=== PATIENT | male | born 1965 | race African-American/Black ===

== ENCOUNTER 2017-08-05 20:57 | Observation (INO) | payer SELFPAY ==
--- NOTE | 2017-08-05 21:34 | RAD ---
FRONTAL VIEW CHEST 08/05/17 COMPARISON: 11/30/15 CLINICAL HISTORY: Left arm numbness and chest tightness. There is no consolidation, effusion or pneumothorax. Mild elevation of the right hemidiaphragm. The c ardiac silhouette is within normal limits in size. There is osseous degenerative change. IMPRESSION: No focal consolidation. POS: [facility]
[2017-08-05 21:38] LABS: Hemoglobin 15.7 g/dL (14.0-18.0); Mean Corpuscular HGB CONC 33.5 g/dL (32.0-36.0); Mean Corpuscular Hemoglobin 30.8 pg (27.0-31.0); Mean Corpuscular Volume 91.8 fl (80.0-94.0); Mean Platelet Volume 6.5 fL (7.4-10.4); Platelet Count 280 thou/uL (130-400); RBC Distribution Width 12.3 % (11.5-14.5); Red Blood Cell (RBC) Count 5.09 mill/uL (4.70-6.10); White Blood Cell (WBC) Count 7.4 thou/uL (4.8-10.8)
[2017-08-05 21:56] LABS: ALT (SGPT) 30 U/L (8-55); AST (SGOT) 19 U/L (5-34); Albumin 4.9 g/dL (3.5-5.0); Alkaline Phosphatase 64 U/L (40-150); Anion Gap 14 mmol/L (10-20); BUN (Urea Nitrogen) 11 mg/dL (8.4-25.7); Bilirubin, Total 1.7 mg/dL (0.2-1.2); CK (CPK) 118 U/L (30-200); Calc. Creatinine Clearance 0 mL/min (70-130); Calcium 9.5 mg/dL (7.8-10.44); Carbon Dioxide 27 mmol/L (22-29); Chloride 103 mmol/L (98-107); Estimated GFR-MDRD Greater than 90; Globulin 3.2 g/dL (2.4-3.5); Glucose 107 mg/dL (70-105); Potassium 3.8 mmol/L (3.5-5.1); Protein, Total 8.1 g/dL (6.0-8.3); Sodium 140 mmol/L (136-145)
[2017-08-05 22:00] LABS: CKMB 0.5 ng/mL (0-6.6); Troponin I Less than 0.010 ng/mL (< 0.028)
[2017-08-05 22:01] LABS: Eosinophils 9 % (0-10); Lymphocytes 43 % (21-51); MDiff Complete? YES; Monocytes 5 % (0-10); Neutrophil 38 % (42-75); Reactive Lymphocytes 5 % (0-10)
[2017-08-05] MEDS ORDERED: HumaLOG 300 UNITS/3 ML VIAL SC PRN (23:18)
[2017-08-05] MEDS ORDERED: Acetaminophen 325 MG TAB PO PRN (23:18)
[2017-08-05] MEDS ORDERED: Dextrose 50% Abboject 50 ML SYRINGE SLOW IVP PRN (23:18)
[2017-08-05] MEDS ORDERED: HYDROcodone/Acetaminophen 5/325 mg Tablet PO PRN (23:18)
[2017-08-05] MEDS ORDERED: Ondansetron ODT 4 MG TAB PO PRN (23:18)
[2017-08-05] MEDS ORDERED: Dextrose 5% in Water 1,000 ML IV PRN (23:18)
--- NOTE | 2017-08-05 23:41 | HP ---
CHIEF COMPLAINT: Chest pain. HISTORY OF PRESENT ILLNESS: The patient is a 52-year-old male who states that he has been having int ermittent chest pain for the last 4 days. Chest pain occurs at rest and not associated with any part icular activity. Patient also admits to having some left arm heaviness/weakness. Patient states mica t he has had prior symptoms; however, has never seek medical attention for this. He has had a stress test, which he states was one year ago which has not been confirmed, which he states was normal and this was for preop for possible knee surgery. The patient states that his mother did have a triple b ypass at a young age and of a stroke in her 60s. PAST MEDICAL HISTORY: Patient is significant for hypertension, hyperlipidemia, and type 2 diabetes. PAST SURGICAL HISTORY: The patient has had a prior reconstructive surgery on his urethra. SOCIAL HISTORY: Negative for alcohol use. Patient does chew tobacco. No smoking. FAMILY HISTORY: As discussed above and reviewed. MEDICATIONS: The patient is currently on metformin, metoprolol, lisinopril, Systane eyedrops, amlodi pine, and simvastatin. REVIEW OF SYSTEMS: Please see HPI. Rest of review of system is negative. LABORATORY AND X-RAY DATA: CBC: White count 7.4, H and H 15 and 46 with platelets of 280. Sodium i s 140, potassium 2.8, chloride 103, bicarbonate 27, BUN 11, creatinine 1.0. His troponin was less th an 0.010. CK-MB is 0.5. BNP was 13.4. Patient's chest x-ray was unremarkable without any abnormali ties. PHYSICAL EXAMINATION: VITAL SIGNS: Blood pressure 145/93, pulse 85. Patient satting 97% on room air, respirations 18. GENERAL: Patient is awake, alert, oriented x3, in no acute distress. HEENT: Pupils equal, round, react to light and accommodation. Extraocular muscles are intact. TMs are clear. No erythema in throat. NECK: No JVD, no lymphadenopathy. HEART: Regular rate and rhythm. LUNGS: Clear to auscultation bilaterally. ABDOMEN: Positive bowel sounds. Soft, nontender, nondistended. EXTREMITIES: No clubbing, cyanosis, or edema. NEUROLOGIC: Cranial nerves II through XII are grossly intact. No focal neurological deficits noted. Strength is equal throughout. PSYCHIATRIC: The patient is cooperative and answering questions appropriately. ASSESSMENT AND PLAN: 1. Chest pain. Continue with serial EKGs and enzymes to rule out. We will try to obtain record of his recent stress test when available. Continue on aspirin. Continue blood pressure control. 2. Type 2 diabetes. Continue on metformin. Continue on insulin sliding scale. 3. Hypertension. Continue with outpatient regimen and adjust as needed. 4. Left arm heaviness. We will go ahead and obtain a CT of the head. CODE STATUS: Patient is FULL CODE.
[2017-08-06 00:15] VITALS: BMI 36.0
[2017-08-06] MEDS: Nicotine 14 MG PATCH TD SCH ×2 (00:22→18:56)
[2017-08-06 02:01] LABS: Troponin I Less than 0.010 ng/mL (< 0.028)
[2017-08-06 04:29] LABS: #Basophils 0.1 thou/uL (0.0-0.2); #Eosinphils 0.5 thou/uL (0.0-0.7); #Lymphocytes 3.8 thou/uL (1.20-3.40); #Monocytes 0.6 thou/uL (0.11-0.59); %Basophils 1.2 % (0.0-1.0); %Eosinophils 6.1 % (0.0-10.0); %Lymphocytes 47.7 % (21.0-51.0); Hemoglobin 14.7 g/dL (14.0-18.0); Mean Corpuscular HGB CONC 33.3 g/dL (32.0-36.0); Mean Corpuscular Hemoglobin 30.8 pg (27.0-31.0); Mean Corpuscular Volume 92.5 fl (80.0-94.0); Mean Platelet Volume 6.9 fL (7.4-10.4); Platelet Count 263 thou/uL (130-400); RBC Distribution Width 12.3 % (11.5-14.5); Red Blood Cell (RBC) Count 4.79 mill/uL (4.70-6.10)
[2017-08-06 04:50] LABS: Anion Gap 12 mmol/L (10-20); BUN (Urea Nitrogen) 10 mg/dL (8.4-25.7); Calc. Creatinine Clearance 164 mL/min (70-130); Calcium 9.4 mg/dL (7.8-10.44); Carbon Dioxide 25 mmol/L (22-29); Chloride 106 mmol/L (98-107); Estimated GFR-MDRD Greater than 90; Glucose 125 mg/dL (70-105); Potassium 3.7 mmol/L (3.5-5.1); Sodium 139 mmol/L (136-145)
[2017-08-06 04:57] LABS: Troponin I Less than 0.010 ng/mL (< 0.028)
[2017-08-06] MEDS ORDERED: metFORMIN 500 MG TAB PO SCH (08:00)
[2017-08-06] MEDS ORDERED: FLU VACC QS2017-18 36 mo. & older 0.5 ML SYRINGE IM ONE (09:00)
[2017-08-06] MEDS ORDERED: Enoxaparin Sodium 30 MG/0.3 ML SYRINGE SC SCH (09:00)
--- NOTE | 2017-08-06 10:04 | CT ---
CT HEAD NONCONTRAST: HISTORY: Left arm weakness. COMPARISON: 11/30/15. FINDINGS: There is no evidence of acute intracranial hemorrhage or infarct. The ventricles appear normal in si ze, shape, and position. There is no mass effect or shift of midline structures. Mucosal thickening is apparent within the ethmoid air cells. IMPRESSION: No acute intracranial abnormalities are demonstrated on noncontrast CT head. POS: [facility]
[2017-08-06] MEDS ORDERED: Communication Order-Pharmacy FS SCH (11:45)
[2017-08-06] MEDS: Metoprolol Tartrate 100 MG TAB PO SCH ×2 (11:56→19:30)
[2017-08-06] MEDS: Lisinopril 20 MG TAB PO SCH (11:56)
[2017-08-06] MEDS: Famotidine/PF 20 mg/2ml Vial SLOW IVP SCH ×2 (11:59→19:29)
--- NOTE | 2017-08-06 15:00 | PRG ---
DATE OF SERVICE: 08/06/2017 SUBJECTIVE: The patient is seen and examined at bedside. He still complains of some chest tightness on and off lasting approximately 5-10 minutes. This is not associated with any nausea, vomiting, or clammy skin. He still complains about some heaviness in his left upper extremity. OBJECTIVE: VITAL SIGNS: Blood pressure is 124/73, pulse is 77, temperature is 97.9, respiratory rate is 16, pul se oximetry is 96% on room air. HEENT: His head is atraumatic, normocephalic. Eyes are PERRLA. Conjunctivae pinkish. Oral mucosa is moist. NECK: Supple, no lymphadenopathy. Thyroid is not palpable. LUNGS: Clear. HEART: S1, S2 normal, no S3, no S4. No any murmur. ABDOMEN: Soft, nontender, nondistended. Bowel sounds are present. No organomegaly. EXTREMITIES: No clubbing, cyanosis or edema. There is no weakness in the left lower extremity. NEUROLOGIC: He is alert and oriented x4. There is no any sensory or motor deficit present. Cranial nerves are intact. LABORATORY DATA: Showed normal CBC. Chemistry normal. BMP: Glucose of 125. Three sets of cardiac enzymes, troponin I within normal limits IMPRESSION: 1. Recurrent chest pressure of unclear etiology. I suspect he has coronary artery disease, which di d not show up on his previous stress test done in 2016. He has multiple risk factors, he is a diabet ic. He dips 2 cans a day . His mother had some massive stroke and he has a history of hyperten rosalio. 2. Type 2 diabetes mellitus, relatively well controlled. We are going to hold his metformin since w e do not know whether he is going to need any IV contrast any time soon and his glycemia is relativel y well controlled. 3. Hypertension and that is controlled. 4. Left arm heaviness. Unclear etiology, suspected a central cause, to rule out of that, I will do CT of the head. PLAN: As mentioned above, we will do the CT of the head to rule out cerebrovascular accident. We wi ll do EKG when he comes back from radiology department. We will have echocardiogram done and Cardiol ogy consultation. We will continue aspirin 81 mg once a day and deep venous thrombosis prophylaxis w ith enoxaparin.
--- NOTE | 2017-08-06 19:49 | CON ---
DATE OF CONSULTATION: 08/06/2017 HISTORY OF PRESENT ILLNESS: The patient is a 52-year-old gentleman who presents with left-sided weakness and chest discomfort. The patient states approximately three months ago, he started having weakness and discomfort in his left arm. This happened on several occasions. He states that it occurs with and without exertion. The patient states he presented to the emergency room with left-sided chest discomfort and pain in his left arm. The patient reports also having dyspnea on exertion. He denies having any PND or orthopnea. The patient has multiple risk factors for coronary artery disease including hypertension, diabetes mellitus, and a family history of heart disease. PAST SURGICAL HISTORY: Urethral surgery. SOCIAL HISTORY: He chews tobacco, nonsmoker. FAMILY HISTORY: Positive family history of cerebrovascular disease. MEDICATIONS ON ADMISSION: Metformin 1000 b.i.d., simvastatin 40 at bedtime, metoprolol 100 b.i.d., lisinopril 20 daily, and Norvasc 10 daily. REVIEW OF SYSTEMS: Ten-point system otherwise unremarkable. No history of easy bruising or bright red blood per rectum. PHYSICAL EXAMINATION: GENERAL: This is an obese gentleman, in no acute distress. VITAL SIGNS: Blood pressure 124/73. NECK: No jugular venous distention, no carotid bruits. LUNGS: Clear to auscultation. HEART: Regular rate and rhythm, normal S1, S2. ABDOMEN: Nondistended. EXTREMITIES: Showed no edema. SKIN: Warm and dry. NEUROLOGIC: Nonfocal. VASCULAR: Radial pulses are 2+. LABORATORY DATA: Sodium 129, potassium 3.7, chloride 106, bicarbonate 25, BUN 10, creatinine 0.9, troponin is less than 0.01. White blood cell count is 8.0, hemoglobin 14.7, hematocrit 44.3, platelets are 263. IMAGING: His EKG revealed normal sinus rhythm, normal ECG. IMPRESSION: 1. Chest pain with some features suggestive of angina. 2. Hypertension. 3. Hyperlipidemia. 4. Obesity. 5. Diabetes mellitus. This gentleman presents with recurrent chest discomfort. I discussed the option of proceeding with a stress test, which he previously actually had a year ago and which was unremarkable. Because of his symptoms, I discussed the option of repeat stress testing versus invasive evaluation. The patient strongly prefers to have a definitive diagnosis. I explained the risks involved with the cardiac catheterization including [place], bleeding, stroke, cardiac arrhythmias, and cardiac . The patient understands these risks and wishes to proceed. PLAN: Proceed with catheterization. MTDSina
--- NOTE | 2017-08-06 20:49 | ULT ---
CAROTID ULTRASOUND WITH HERNANDEZ SCALE AND DOPPLER DUPLEX COLOR FLOW IMAGING SPECTRAL ANALYSIS PERFORMED: CLINICAL INDICATION: Weakness. FINDINGS: There is mild atherosclerotic calcification of the carotid arteries. PEAK SYSTOLIC VELOCITY (CM/S): Right CCA 89 Left CCA 120 Right ICA 54 Left ICA 55 There is antegrade flow within the visualized bilateral vertebral arteries. IMPRESSION: 1. No hemodynamically significant stenosis of the right internal carotid artery. 2. No hemodynamically significant stenosis of the left internal carotid artery. POS: [facility]
[2017-08-06] MEDS ORDERED: Atorvastatin Calcium 20 MG TAB PO SCH (21:00)
[2017-08-06] MEDS ORDERED: Amlodipine 10 MG TAB PO SCH (21:00)
[2017-08-06] MEDS ORDERED: Simvastatin 40 MG TAB PO SCH (21:00)
[2017-08-07] MEDS: Famotidine/PF 20 mg/2ml Vial SLOW IVP SCH (05:12)
[2017-08-07] MEDS: Metoprolol Tartrate 100 MG TAB PO SCH (05:12)
[2017-08-07] MEDS ORDERED: Diazepam 5 MG TAB PO SCH (06:00)
[2017-08-07] MEDS: Lisinopril 20 MG TAB PO SCH (08:57)
[2017-08-07] MEDS ORDERED: Iopamidol 370 76% 100 ML VIAL ONE (12:51)
[2017-08-07] MEDS ORDERED: Midazolam HCl 2 mg/2 ml Vial ONE (12:58)
[2017-08-07] MEDS ORDERED: Fentanyl 100 MCG/2 ML VIAL ONE (12:58)
[2017-08-07] MEDS ORDERED: Sodium Chloride 0.9% 200 ML IV SCH (13:15)
[2017-08-07] MEDS ORDERED: Nitroglycerin 0.4 MG TAB (25 Tab Bottle) SL PRN (13:15)
[2017-08-07] MEDS ORDERED: Acetaminophen/Codeine 30-300mg Tablet PO PRN ×2 (13:15)
[2017-08-07] MEDS ORDERED: traMADol HCl 50 MG TAB PO PRN (13:15)
[2017-08-07 15:56] VITALS: TEMP 97.6
[2017-08-07 17:56] VITALS: BP 119/71
[2017-08-07] MEDS ORDERED: Atorvastatin Calcium 40 MG TAB PO SCH (21:00)
--- NOTE | 2017-08-08 00:15 | DIS ---
DATE OF ADMISSION: 08/05/2017 DATE OF DISCHARGE: 08/07/2017 DISCHARGE DIAGNOSIS: Unstable angina. SECONDARY DIAGNOSES: Type 2 diabetes mellitus, hypertension. HOSPITAL COURSE: Mr. Isidro Isaacs is a 52-year-old male who has had intermittent chest pain for 4 days before presenting to the hospital. It occurs at rest, not exercise or with activity. He also had some left arm heaviness/weakness. He reports similar symptoms, but has never sought medication. He has had a previous stress test about a year ago which according to him, it was normal. He says this was free of a possible knee surgery. He has a significant family history with triple bypass in his mom at a young age and of a stroke in her 60s. He was admitted for chest pain. Serial EKGs were done and enzymes trended. Cardiology was consulted and decided to proceed with cardiac catheterization. After catheterization, Cardiology is reported that patient could be discharged 4 hours post-catheterization. He remained stable and was discharged without incident. DISCHARGE MEDICATIONS: Aspirin 81 mg daily, nicotine patch 14 mg q.24 hours, nitroglycerin 0.4 mg sublingually every 5 minutes as needed for chest pain, metformin 1000 mg b.i.d. with meals, metoprolol 100 mg b.i.d., lisinopril 20 mg daily, simvastatin 40 mg at bedtime, amlodipine 10 mg at bedtime. CONSULT: Cardiology. PHYSICAL EXAMINATION: VITAL SIGNS: Stable on day of discharge, temperature was 97.6, pulse 68, oxygen saturations are 97% on room air, blood pressure 119/70. GENERAL: Not in acute distress, sitting up in bed comfortably. HEENT: Normocephalic, atraumatic. Moist mucous membranes, PERRLA, EOMI, not pale, anicteric. RESPIRATORY: Vesicular breath sounds bilaterally. No wheezes or rales. NECK: Supple, full range of movement. CARDIOVASCULAR: S1, S2 only. No murmurs, rubs or gallops. ABDOMEN: Obese. Bowel sounds positive. No organomegaly. EXTREMITIES: Nontender, nondistended. MUSCULOSKELETAL: Full range of movement bilaterally. SKIN: No lesions or rashes. Warm and well-perfused. NEUROLOGIC: Alert and well oriented to time, place and person. No focal deficits. PSYCHIATRIC: Normal mood and affect. LABORATORY DATA: Sodium 139, potassium 3.7, chloride 106, carbon dioxide 25, anion gap 12, BUN 10, creatinine 0.9, glucose 125, calcium 9.4. WBC 8, hemoglobin 14.7, platelets 263. IMAGING: Carotid Doppler, no hemodynamically significant stenosis in the right and left ICA. Brain CT, no acute intracranial abnormalities. Chest x-ray, no focal consolidation. CONDITION AT DISCHARGE: Stable and improved. PROCEDURE: Cardiac catheterization. DIET: Diabetic, heart healthy diet. HEALTH CARE GOALS: To follow up with Cardiology within 7 days of discharge. Encouraged to take his medications as prescribed and to return to the emergency room if he has any chest pain, shortness of breath. ACTIVITY: Resume as tolerated. No heavy lifting greater than 15 pounds until he has been seen by Cardiology. Discharge time 25 minutes including documentation on chart review. COURT
--- NOTE | 2017-08-12 17:05 | EKG ---
Test Reason : Blood Pressure : / mmHG Vent. Rate : 083 BPM Atrial Rate : 083 BPM P-R Int : 166 ms QRS Dur : 076 ms QT Int : 354 ms P-R-T Axes : 052 -21 010 degrees QTc Int : 415 ms Normal sinus rhythm Voltage criteria for left ventricular hypertrophy Abnormal ECG Confirmed by CARLOS MASSEY D.O. ([id number]), managing editor TABITHA GONZALEZ ([id number] on 08/12/2017 5:04:24 PM Referred By: Confirmed By:CARLOS MASSEY D.O.
--- NOTE | 2017-10-08 08:36 | EKG ---
Test Reason : Blood Pressure : / mmHG Vent. Rate : 069 BPM Atrial Rate : 069 BPM P-R Int : 168 ms QRS Dur : 078 ms QT Int : 388 ms P-R-T Axes : 065 -13 020 degrees QTc Int : 415 ms Normal sinus rhythm Possible Left atrial enlargement Left ventricular hypertrophy Abnormal ECG When compared with ECG of 05-AUG-2017 21:08, (Unconfirmed) No significant change was found Confirmed by GANGA GATES MD ([id number]) on 10/08/2017 8:36:00 AM Referred By: EVIN Confirmed By:GANGA GATES MD
== END 2017-08-07 19:41 | disposition home or self-care (01) ==
LOC: ERS 20:57 → 2SW 22:28
PROVIDERS: ADMIT Hospitalist; ATTEND Hospitalist
PROC: 4A023N7 Measurement of Cardiac Sampling and Pressure, Left Heart, Percutaneous Approach (ICD-10-PCS; principal; 2017-08-07)
PROC: B2151ZZ Fluoroscopy of Left Heart using Low Osmolar Contrast (ICD-10-PCS; 2017-08-07)
DX: I20.0 Unstable angina (principal); E11.9 Type 2 diabetes mellitus without complications; I10 Essential (primary) hypertension; E78.5 Hyperlipidemia, unspecified; F17.220 Nicotine dependence, chewing tobacco, uncomplicated; E66.9 Obesity, unspecified; Z68.35 Body mass index [BMI] 35.0-35.9, adult; Z79.84 Long term (current) use of oral hypoglycemic drugs; Z79.899 Other long term (current) drug therapy; Z98.890 Other specified postprocedural states
CPT/HCPCS: 36415; 36416; 70450; 71045; 80048; 80053; 82553; 83880; 84484; 85025; 85379; 93005; 93010; 93306; 93458; 93880; 96372; 96374; 96376; 99152; 99406; A4216; C1769; G0378; J1644; J1650; J2250; J3010; S0028